=== PATIENT | male | born 1995 | race Caucasian/White ===

== ENCOUNTER 2016-11-18 09:54 | Emergency (ER) | payer MEDICAID ==
[~2016-11-18] VITALS: Ht 165.1 cm; Wt 72.6 kg
[~2016-11-18 09:54] MED LIST: AUGMENTIN 500 M1 TAB PO; AUGMENTIN 875-1 EACH PO; FLEXERIL10 MG PO; KEFLEX500 M1 PO; NOMEDS *; ORAPRED15 MG/5 ML PO; OXYCODONE-ACETA1 TAB PO
[2016-11-18 10:13] LABS: URINE BILIRUBIN - DIPSTICK SMALL (NEG); URINE BLOOD LARGE (NEG)
--- NOTE | 2016-11-18 10:23 | Urgent Treatment Center Report ---
History of Present Issue Date/Time Seen by Provider 11/18/16 1020 Visit Reason Pt arrived:Walked Presenting Problem:STATES BLOOD IN HIS URINE THAT BEGAN THIS MORNING. DENIES INJURY OR PAIN WITH URINATION. DENIES ANY PREVIOUS EPISODES. DENIES HISTORY OF KIDNEY STONES. Location if Accident: Onset of symptoms date/time:11/18/16/ or onset unknown for:MEDICAL HX UNKNOWN Have you (or family members/close friends) recently traveled outside the [place]? N If Yes, where/when: Have you had exposure to infectious disease within the past month? TB? Other? Specify: Patient states that he noticed this morning that he had blood in his urine. States that urine was bright red with what appeared to be clots in the urine, States that he is not having any pain at this time, no recent back or kidney injury, denies pain or difficulty with urination. State that he has never had this to happen before ALLERGIES Coded Allergies: Iodinated Contrast Media - Oral and (Iodinated Contrast Media - IV Dye) ( Intermediate, I-HIVES 04/17/16) History Medical History General CAD? No Angina: No VA: No Hypertension? No Hyperlipidemia? No CHF? No DVT? No PE? No COPD? No Asthma? Yes Anemia? No GERD? No Gastric ulcers? No GI Bleed? No Hernia? No Thyroid Problems? No Hypothyroidism? No CVA? No Seizures? No Diabetes? No Renal Insuffiency? No UTI? No Stones? No BPH? No GB Disease: No Nephritic Syndrome? No Asplenia? No Hepatitis? No Sickle Cell Disease? No Arthritis? No Migraines? No Cataracts? No Glaucoma? No MRSA? No HIV? No TB? No Anxiety? No Depression? No Cancer? No Site: N More? No Immunization HX DT/Tetanus 1-4 Years Ago Flu NOT SURE Pneumonia NOT SURE Surgical Hx Previous Surgery?Y ELBOW TITANIUM MECHELLE LEFT FEMUR Family History Family HX Diabetes Yes CAD Yes Hypertension Yes Hyperlipidemia Yes Cancer Yes TB No Social History Smoking Hx Smoker: Former Smoker Tobacco: No Alcohol Alcohol: No Review of Systems All Other Systems Reviewed and Negative Genitourinary hematuria. Comment Urine bright red in color states that he thinks he passed some clot this morning Physical Exam Vital Signs Vital Signs Date Time Temp Pulse Resp B/P Pulse O2 O2 Flow FiO2 Ox Delivery Rate 11/18 1100 9803.0 62 18 145/79 99 11/18 1001 9803.0 62 18 145/79 99 General Appearance normal appearance, WD/WN, no apparent distress Respiratory Status Yes: trachea midline, chest symmetrical, non tender chest. No: respiratory distress. 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 Medical Decision Making LABS/Meds/Orders Pt receiving controlled substance in ED? No Comment After recieveing UA results, it was recommended to the patient that he be sent to the Emergency Room for more extensive treatment and testing. Patient refusing to go states that he has somewhere he has to be and he needs to leave. Patient informed of the risk he is taking with his health and that this could mean something serious and life threatening could be occuring and he needed to go to the ER and be seen. Patient still refused states that he may come back later but he needed to leave and he got up out of the chair and left against medical advise. Results/Orders Laboratory Tests 11/18/16 1004: Urine Color MARIA ALEJANDRA, Urine Appearance CLEAR, Urine pH 6.0, Ur Specific [place] 1.030, Urine Protein 100, Urine Ketones TRACE H, Urine Blood LARGE, Urine Nitrate NEGATIVE, Urine Bilirubin SMALL, Urine Urobilinogen 1.0, Ur Leukocyte Esterase NEGATIVE, Urine Glucose NEGATIVE Orders Procedure Date/time Status [facility] URINE DIPSTICK 11/18 1004 Complete Departure Departure Time of Disposition 1054 Disposition Against Medical Advice Clinical Impression Primary Impression: Hematuria Condition STABLE Referrals Germán HICKS,Adrien (Family) Additional Instructions Patient avised that he needed to be transfered over to ER for more extensive testing, patient advised of the risks associated with refusing to go to the ER at this time and all the possible complications associated with blood in the urine Patient educated on risks associated with leaving Patient informed that even if he refused to go the the ER at this time he needed to seek treatment and help due to large amounts of blood in the urine, patient verbalized understanding of risks Discharge Counseling Counseled pt/family regarding diagnosis, test results, home care, follow up needs at 1022
[2016-11-18 11:00] VITALS: BP 145/79
== END 2016-11-18 11:00 | disposition left against medical advice (07) ==
LOC: UTC 09:54
PROVIDERS: Nurse Practitioner
DX: R31.9 Hematuria, unspecified (principal)

== ENCOUNTER 2017-04-21 14:36 | Emergency (ER) | payer MEDICAID ==
[~2017-04-21] VITALS: Ht 167.6 cm; Wt 68.0 kg
[~2017-04-21 14:36] MED LIST changes: +MINOCYCLINE 10100 MG PO
--- NOTE | 2017-04-21 14:57 | Urgent Treatment Center Report ---
History of Present Issue Date/Time Seen by Provider 04/21/17 1486 Visit Reason Pt arrived: Presenting Problem: Location if Accident: Onset of symptoms date/time:/ or onset unknown for: Have you (or family members/close friends) recently traveled outside the [place]? If Yes, where/when: Have you had exposure to infectious disease within the past month? TB? Other? Specify: Source patient, RN notes reviewed Exam Limitations no limitations Comment Patient received notification last night that his ex girlfriend tested positive for chlamydia and would like to be tested. ALLERGIES Coded Allergies: Iodinated Contrast- Oral and IV Dye (Iodinated Contrast Media - IV Dye) ( Intermediate, I-HIVES 04/17/16) Home Medications Active Scripts Minocycline Hcl (Minocycline 100MG. Capsule) 100 MG PO BID #20 CAP Prov: 12/14/16 History Medical History General CAD? No Angina: No NE: No Hypertension? No Hyperlipidemia? No CHF? No DVT? No PE? No COPD? No Asthma? Yes Anemia? No GERD? No Gastric ulcers? No GI Bleed? No Hernia? No Thyroid Problems? No Hypothyroidism? No CVA? No Seizures? No Diabetes? No Renal Insuffiency? No UTI? No Stones? No BPH? No GB Disease: No Nephritic Syndrome? No Asplenia? No Hepatitis? No Sickle Cell Disease? No Arthritis? No Migraines? No Cataracts? No Glaucoma? No MRSA? No HIV? No TB? No Anxiety? No Depression? No Cancer? No Site: N More? No Immunization HX DT/Tetanus 1-4 Years Ago Flu NOT SURE Pneumonia NOT SURE Surgical Hx Previous Surgery?Y ELBOW TITANIUM MECHELLE LEFT FEMUR Family History Family HX Diabetes Yes CAD Yes Hypertension Yes Hyperlipidemia Yes Cancer Yes TB No Social History Smoking Hx Packs/day 1 1/2 - 2 Packs Alcohol Alcohol: No Review of Systems All Other Systems Reviewed and Negative Genitourinary denies: discharge, dysuria, hx stds. Physical Exam Vital Signs Vital Signs Date Time Temp Pulse Resp B/P Pulse O2 O2 Flow FiO2 Ox Delivery Rate 04/21 1501 98.1 97 18 166/85 98 General Appearance normal appearance, no apparent distress Respiratory Status No: respiratory distress, trachea midline, chest symmetrical. Lung Sounds bilateral: normal breath sounds, lungs clear. Cardiovascular normal exam, regular rate/rhythm, no peripheral edema, no gallop, no JVD, no murmur, no rub Extremities non-tender, normal range of motion, normal inspection, normal capillary refill Neurologic alert, normal exam, oriented x 3 Mental status normal mood/affect Medical Decision Making LABS/Meds/Orders Pt receiving controlled substance in ED? No Results/Orders Current Medication Orders Sig/Lukas Start time Last Medication Dose Route Stop Time Status Admin Ceftriaxone Sodium 0 .STK-MED ONE 04/21 1528 DC .ROUTE Azithromycin 0 .STK-MED ONE 04/21 1527 DC PO Azithromycin 500 MG ONCE ONE 04/21 1515 DC 04/21 PO 04/21 1516 1538 Ceftriaxone Sodium 250 MG ONCE ONE 04/21 1515 DC 04/21 IM 04/21 1516 1538 Lidocaine HCl 0.9 ML ONCE ONE 04/21 1515 DC 04/21 IM 04/21 1516 1539 Orders Procedure Date/time Status CHLAMYDIA/GC 04/21 1546 Active Departure Departure Time of Disposition 1545 Disposition DC Home or Self Care(routine) Clinical Impression Primary Impression: Exposure to chlamydia Condition STABLE Referrals Eduardo HICKS,Ari Hobbs (Family) at 1549
[2017-04-21 16:02] VITALS: BP 166/85
[2017-04-24 03:37] LABS: Neisseria gonorrhoeae, NAA Negative (Negative)
== END 2017-04-21 16:02 | disposition home or self-care (01) ==
LOC: UTC 14:36
PROVIDERS: Emergency Medicine
DX: Z20.89 Contact with and (suspected) exposure to other communicable diseases (principal); J45.909 Unspecified asthma, uncomplicated